=== PATIENT | male | born 1985 ===

== ENCOUNTER 2020-06-05 22:47 | Emergency (ER) | payer SELFPAY ==
[~2020-06-05] VITALS: Ht 162.6 cm; Wt 72.7 kg
[2020-06-05 22:50] VITALS: BP 139/88
== END 2020-06-06 01:23 | disposition left against medical advice (07) ==
LOC: EMS 22:47
DX: M79.10 Myalgia, unspecified site (principal); Z53.21 Procedure and treatment not carried out due to patient leaving prior to being seen by health care provider